=== PATIENT | male | born 1980 | race Caucasian/White ===

== ENCOUNTER 2019-01-05 07:57 | Emergency (ER) | payer OTHER ==
[~2019-01-05] VITALS: Ht 175.3 cm; Wt 81.7 kg
[2019-01-05] MEDS ORDERED: AMOXICILLIN 50500 MG PO (08:49)
[2019-01-05 08:58] VITALS: BP 163/106
== END 2019-01-05 09:00 | disposition home or self-care (01) ==
LOC: M.ERS 07:57
DX: J02.0 Streptococcal pharyngitis (principal); F17.210 Nicotine dependence, cigarettes, uncomplicated; Z88.2 Allergy status to sulfonamides

== ENCOUNTER 2019-04-18 09:56 | Emergency (ER) | payer OTHER ==
[~2019-04-18] VITALS: Ht 175.3 cm; Wt 79.4 kg
[~2019-04-18 09:56] MED LIST: AMOXICILLIN 50500 MG PO
[2019-04-18 10:04] VITALS: BP 140/100
[2019-04-18] MEDS ORDERED: NORCO 5-325 TA1 EAC1 PO (10:26)
[2019-04-18] MEDS ORDERED: IBUPROFEN 600600 M1 PO (10:26)
== END 2019-04-18 10:41 | disposition home or self-care (01) ==
LOC: M.ERS 09:56
DX: M25.521 Pain in right elbow (principal); F17.210 Nicotine dependence, cigarettes, uncomplicated; Z88.2 Allergy status to sulfonamides